=== PATIENT | male | born 1985 | race Two or more races ===

== ENCOUNTER → 2017-10-04 | Outpatient (CLI) | payer OTHER ==
--- NOTE | 2017-10-05 05:36 | REP ---
RIGHT FINGERS, FOUR VIEWS: HISTORY: Laceration. There is no acute fracture or dislocation. The joint spaces are normal in appearance. IMPRESSION: There is no acute fracture or dislocation. Signed by Adan Nuñez MD 10/05/2017 08:21 A
== END ==
LOC: M LRY 15:04
PROVIDERS: ATTEND Nurse Practitioner Family
DX: S61.214A Laceration without foreign body of right ring finger without damage to nail, initial encounter (principal); X58.XXXA Exposure to other specified factors, initial encounter; Y92.89 Other specified places as the place of occurrence of the external cause; Y93.89 Activity, other specified; Y99.8 Other external cause status
CPT/HCPCS: 73140; G0463

== ENCOUNTER 2018-11-30 09:06 | Emergency (ER) | payer OTHER ==
[~2018-11-30] VITALS: Ht 175.3 cm; Wt 71.6 kg
[2018-11-30] MEDS ORDERED: GLUCAGON FOR INJ 1 MG VIAL (J1610) IV STA (09:39)
[2018-11-30 09:54] LABS: HEMATOCRIT 43.2 % (42.0-52.0); HEMOGLOBIN 15.5 g/dl (13.5-17.5); MEAN CORPUSCULAR HGB CONC 35.9 g/dl (32.0-36.5); MEAN CORPUSCULAR VOLUME 89.3 fl (80.0-96.0); PLATELET COUNT, AUTOMATED 210 10^3/uL (150-450); RED BLOOD COUNT 4.84 10^6/uL (4.30-6.10)
[2018-11-30 10:24] LABS: BLOOD UREA NITROGEN 9 MG/DL (7-18); CALCIUM LEVEL 8.9 MG/DL (8.5-10.1); CARBON DIOXIDE LEVEL 30 MEQ/L (21-32); CHLORIDE LEVEL 105 MEQ/L (98-107); CREATININE FOR GFR 1.09 MG/DL (0.70-1.30); GLOMERULAR FILTRATION RATE > 60.0 (>60); GLUCOSE, FASTING 98 MG/DL (70-100); POTASSIUM SERUM 4.1 MEQ/L (3.5-5.1); SODIUM LEVEL 141 MEQ/L (136-145)
--- NOTE | 2018-11-30 10:52 | REP ---
Soft-tissue neck x-ray: Three views. History: Question foreign body in throat. Findings: Three views of the soft tissues of the neck show normal epiglottis and aryepiglottic folds. Retropharyngeal soft tissues are unremarkable. There is straightening of the normal cervical lordosis. Mild degenerative disc changes are seen at the C5-6 disc level. No tracheal or laryngeal abnormality is seen. No opaque foreign body noted. Impression: Negative soft-tissue neck study. No opaque foreign body noted. Electronically Signed by Ministerio Higgins MD 11/30/2018 10:43 A
[2018-11-30] MEDS ORDERED: PANTOPRAZOLE 40MG TAB (PROTONIX) PO ONE (13:15)
[2018-11-30 13:18] VITALS: BP 142/82
[2018-11-30] MEDS ORDERED: PROT1TAB2 PO (13:18)
== END 2018-11-30 13:35 | disposition home or self-care (01) ==
LOC: M ED 09:06
DX: R13.10 Dysphagia, unspecified (principal); K21.9 Gastro-esophageal reflux disease without esophagitis; F17.210 Nicotine dependence, cigarettes, uncomplicated
CPT/HCPCS: 70360; 80048; 85027; 96374; 99284; J1610